=== PATIENT | female | born 1975 | race Two or more races ===

== ENCOUNTER → 2024-01-21 | Outpatient (CLI) | payer MEDICAID ==
[~2024-01-21] MED LIST: LEVE500T3 PO; MAGN400T23 PO; TOPI200T43 PO
[2024-01-21 10:58] LABS: Urine Bacteria NONE SEEN /hpf (None Seen); Urine Blood 3+ /uL (Negative); Urine Clarity HAZY (Clear); Urine Color Yellow (Yellow); Urine Mucus FEW (None Seen); Urine Protein, UAD TRACE (Negative); Urine Specific Gravity 1.019 (1.001-1.035); Urine Urobilinogen Normal (Negative); Urine WBC 31 /hpf (0 - 5)
[2024-01-23 03:10] LABS: Chlamydia Trachomatis, NAA Negative (Negative); Neisseria gonorrhoeae, NAA Negative (Negative)
== END | disposition home or self-care (01) ==
LOC: LAB 10:10
PROVIDERS: ATTEND Family Medicine
DX: Z00.01 Encounter for general adult medical examination with abnormal findings (principal); Z13.89 Encounter for screening for other disorder
CPT/HCPCS: 36415; 81001; 83036; 87086